=== PATIENT | male | born 1945 | race Caucasian/White ===

== ENCOUNTER 2018-10-11 19:25 | Emergency (ER) | payer MEDICARE, OTHER ==
[~2018-10-11] VITALS: Ht 170.2 cm; Wt 78.8 kg
[~2018-10-11 19:25] MED LIST: ADLT ASA LOW81 MG OR; FOLIC ACID400 MC1 OR; METFORMIN500 M1 OR; MULTI VIT OR; PLAVIX75 MG OR; VITAMIN C500 MG OR; ZOCOR20 MG OR
[2018-10-11] MEDS ORDERED: ERYTHROMYCIN O3.5 GM OU (21:06)
[2018-10-11 21:15] VITALS: BP 154/89
== END 2018-10-11 21:32 | disposition home or self-care (01) ==
LOC: ED 19:25
PROC: 08C9XZZ Extirpation of Matter from Left Cornea, External Approach (ICD-10-PCS; principal; 2018-10-11)
PROC: 08C8XZZ Extirpation of Matter from Right Cornea, External Approach (ICD-10-PCS; 2018-10-11)
DX: T15.02XA Foreign body in cornea, left eye, initial encounter (principal); T15.01XA Foreign body in cornea, right eye, initial encounter; I25.10 Atherosclerotic heart disease of native coronary artery without angina pectoris; E11.9 Type 2 diabetes mellitus without complications; E78.00 Pure hypercholesterolemia, unspecified; X58.XXXA Exposure to other specified factors, initial encounter; Y93.89 Activity, other specified; Z95.1 Presence of aortocoronary bypass graft; Z95.5 Presence of coronary angioplasty implant and graft

== ENCOUNTER 2022-06-21 09:46 | Emergency (ER) | payer MEDICARE, OTHER ==
[~2022-06-21] VITALS: Ht 170.2 cm; Wt 72.7 kg
[~2022-06-21 09:46] MED LIST changes: +CLOPIDOGREL75 MG PO; +ERYTHROMYCIN O3.5 GM OU; +FISH OIL1000 M2 PO; +GLYBURIDE/METFO1 TAB PO; +LANTUS100 UNIT/M IJ; +MOBIC7.5 M1 PO; +MYSOLINE50 M1 PO; +TRAMADOL HCL50 MG PO
[2022-06-21 10:01] VITALS: BP 148/70
[2022-06-21 10:16] VITALS: BP 123/69
[2022-06-21] MEDS ORDERED: TRAMADOL HYDROC50 M1 PO (10:20)
[2022-06-21] MEDS ORDERED: VALACYCLOVIR HCL1 GM PO (10:20)
== END 2022-06-21 10:36 | disposition home or self-care (01) ==
LOC: ED 09:46
DX: B02.9 Zoster without complications (principal); I25.10 Atherosclerotic heart disease of native coronary artery without angina pectoris; E11.9 Type 2 diabetes mellitus without complications; E78.00 Pure hypercholesterolemia, unspecified; F17.210 Nicotine dependence, cigarettes, uncomplicated; Z85.038 Personal history of other malignant neoplasm of large intestine; Z95.1 Presence of aortocoronary bypass graft; Z95.5 Presence of coronary angioplasty implant and graft; Z79.84 Long term (current) use of oral hypoglycemic drugs; Z79.4 Long term (current) use of insulin

== ENCOUNTER 2023-09-18 15:24 | Emergency (ER) | payer MEDICARE, OTHER ==
[2023-09-18] VITALS (10 sets, daily range): BP systolic 139–204; BP diastolic 66–169
[~2023-09-18] VITALS: Ht 170.2 cm; Wt 70.7 kg
[~2023-09-18 15:24] MED LIST changes: +TRAMADOL HYDROC50 M1 PO; +VALACYCLOVIR HCL1 GM PO
[2023-09-18 16:06] LABS: BASO% 0.5 % (0-3); EOS% 1.4 % (0-8); HEMATOCRIT 37.7 % (39.0-50.0); HEMOGLOBIN 12.1 g/dl (14.0-18.0); IMMATURE GRANULOCYTES 0.2 % (0.0-5.0); LYMPH% 14.7 % (15-41); MEAN CELL VOLUME 91.3 fL CALC (80.0-100.0); MEAN CORPUSCULAR HGB 29.3 pG CALC (26.0-32.0); MEAN CORPUSCULAR HGB CONC 32.1 g/dL CAL (32.0-36.0); NEUT# 4.41 thou/uL (1.82-7.42); NEUT% 77.2 % (42-76); RED BLOOD COUNT 4.13 mill/uL (4.70-6.10); RED CELL DISTRI WIDTH 13.5 % (11.5-15.5)
[2023-09-18 16:23] LABS: ALBUMIN 4.1 g/dL (3.2-5.0); ALKALINE PHOSPHATASE 78 u/l (38-126); ANION GAP 11 (6-22 (CALC)); BILIRUBIN, TOTAL 0.6 mg/dL (0.2-1.3); BUN 19 mg/dL (8-23); BUN/CREATININE RATIO 18 (12-20 (CALC)); CARBON DIOXIDE 26 mmol/l (22-30); CHLORIDE 104 mmol/l (95-108); GFR FOR AFR.AMER. > 60 ML/MIN (>=60 (CALC)); GFR OTHER RACES > 60 ML/MIN (>=60 (CALC)); SGOT/AST 40 u/l (19-48); SODIUM 138 mmol/l (137-146); TOTAL PROTEIN 7.3 g/dL (6.3-8.2)
[2023-09-18 17:19] LABS: URINE BILIRUBIN - DIPSTICK Negative (NEGATIVE); URINE BLOOD DIPSTICK Negative (NEGATIVE); URINE GLUCOSE - DIPSTICK 100 mg/dL (NEGATIVE); URINE KETONE Negative (NEGATIVE); URINE LEUK ESTERASE Negative (NEGATIVE); URINE NITRITE - DIPSTICK Negative (Negative); URINE PH 6.5 (4.5-8.0); URINE PROTEIN - DIPSTICK Negative (NEG-TRACE); URINE SPECIFIC GRAVITY 1.015; URINE UROBILINOGEN - DIPSTICK 0.2 E.U./dL (0.2)
[2023-09-18 17:21] LABS: URINE COLOR Yellow
== END 2023-09-18 19:50 | disposition home or self-care (01) ==
LOC: ED 15:24
PROVIDERS: Family Medicine
DX: E11.649 Type 2 diabetes mellitus with hypoglycemia without coma (principal); I25.10 Atherosclerotic heart disease of native coronary artery without angina pectoris; Z95.5 Presence of coronary angioplasty implant and graft; Z79.84 Long term (current) use of oral hypoglycemic drugs; Z79.4 Long term (current) use of insulin; Z72.0 Tobacco use; Z95.1 Presence of aortocoronary bypass graft; Z95.0 Presence of cardiac pacemaker; Z20.822 Contact with and (suspected) exposure to COVID-19

== ENCOUNTER 2023-11-06 17:26 | Emergency (ER) | payer MEDICARE, OTHER ==
[~2023-11-06] VITALS: Ht 170.2 cm; Wt 70.0 kg
[2023-11-06] MEDS ORDERED: LIDOcaine HCl 1% (Local Anesth.) 20 ML VIAL STI STA (17:49)
[2023-11-06] MEDS ORDERED: POVIDONE IODINE 0.5 OZ/BTL TOP ONE (17:50)
[2023-11-06] MEDS ORDERED: NEOMYCIN-BACITRACIN-POLYMYXIN 0.5 GM/PAK PAK TOP ONE (17:50)
[2023-11-06] MEDS ORDERED: Diph, Acellular Pertussis, Tet 0.5 ML/VIAL (Tdap) SDV IM ONE (17:50)
[2023-11-06 17:51] VITALS: BP 149/70
[2023-11-06 18:00] VITALS: BP 141/75
[2023-11-06 18:15] VITALS: BP 141/79
[2023-11-06] MEDS ORDERED: KEFLEX500 MG PO (18:16)
[2023-11-06 18:30] VITALS: BP 133/76
[2023-11-06 18:38] VITALS: BP 133/76
== END 2023-11-06 19:07 | disposition home or self-care (01) ==
LOC: ED 17:26
PROC: 0HQGXZZ Repair Left Hand Skin, External Approach (ICD-10-PCS; principal; 2023-11-06)
DX: S61.012A Laceration without foreign body of left thumb without damage to nail, initial encounter (principal); E11.9 Type 2 diabetes mellitus without complications; I25.10 Atherosclerotic heart disease of native coronary artery without angina pectoris; E78.00 Pure hypercholesterolemia, unspecified; W26.8XXA Contact with other sharp object(s), not elsewhere classified, initial encounter; Z95.1 Presence of aortocoronary bypass graft; Z95.5 Presence of coronary angioplasty implant and graft; Z79.4 Long term (current) use of insulin; Z79.84 Long term (current) use of oral hypoglycemic drugs

== ENCOUNTER 2024-09-16 16:43 | Emergency (ER) | payer MEDICARE, OTHER ==
[~2024-09-16] VITALS: Ht 170.2 cm; Wt 64.4 kg
[~2024-09-16 16:43] MED LIST changes: +KEFLEX500 MG PO; +LORTAB 5/3255 MG PO
[2024-09-16] MEDS ORDERED: LIDOcaine HCl 1% (Local Anesth.) 20 ML VIAL STI STA (17:21)
[2024-09-16] MEDS ORDERED: DOXYCYCLINE100 MG PO (17:25)
[2024-09-16] MEDS ORDERED: POVIDONE IODINE 0.5 OZ/BTL TOP ONE (17:25)
[2024-09-16] MEDS ORDERED: Diph, Acellular Pertussis, Tet 0.5 ML/VIAL (Tdap) SDV IM ONE (17:25)
[2024-09-16 17:27] VITALS: BP 134/62
[2024-09-16 17:30] VITALS: BP 136/63
[2024-09-16] MEDS ORDERED: DOXYCYCLINE HYCLATE 100 MG/CAP PO ONE (18:20)
[2024-09-16 18:34] VITALS: BP 136/63
== END 2024-09-16 18:46 | disposition home or self-care (01) ==
LOC: ED 16:43
PROC: 0HQGXZZ Repair Left Hand Skin, External Approach (ICD-10-PCS; principal; 2024-09-16)
DX: S61.211A Laceration without foreign body of left index finger without damage to nail, initial encounter (principal); I25.10 Atherosclerotic heart disease of native coronary artery without angina pectoris; E11.9 Type 2 diabetes mellitus without complications; E78.00 Pure hypercholesterolemia, unspecified; F17.210 Nicotine dependence, cigarettes, uncomplicated; W29.8XXA Contact with other powered hand tools and household machinery, initial encounter; Z79.4 Long term (current) use of insulin; Z95.5 Presence of coronary angioplasty implant and graft; Z95.1 Presence of aortocoronary bypass graft
CPT/HCPCS: 90715

== ENCOUNTER 2024-09-23 14:08 | Emergency (ER) | payer MEDICARE, OTHER ==
[~2024-09-23] VITALS: Ht 170.2 cm; Wt 75.0 kg
[~2024-09-23 14:08] MED LIST changes: +DOXYCYCLINE100 MG PO
[2024-09-23] MEDS ORDERED: BACTRIM DS1 TAB PO (14:43)
[2024-09-23 14:47] VITALS: BP 160/76
== END 2024-09-23 14:50 | disposition home or self-care (01) ==
LOC: ED 14:08
DX: S61.211D Laceration without foreign body of left index finger without damage to nail, subsequent encounter (principal); E11.9 Type 2 diabetes mellitus without complications; I25.10 Atherosclerotic heart disease of native coronary artery without angina pectoris; E78.00 Pure hypercholesterolemia, unspecified; X58.XXXD Exposure to other specified factors, subsequent encounter; Z79.4 Long term (current) use of insulin; Z79.84 Long term (current) use of oral hypoglycemic drugs; Z72.0 Tobacco use